=== PATIENT | male | born 1970 | race Caucasian/White ===

== ENCOUNTER 2022-09-19 13:23 | Outpatient (CLI) | payer OTHER, SELFPAY ==
--- NOTE | 2022-09-19 13:25 | XR_ITS ---
WS: [id number] LEFT HUMERUS: 2 VIEW(S) TECHNIQUE: AP and lateral. HISTORY: chronic pain in left arm COMPARISON: None available. No acute fracture or dislocation. Small soft tissue calcification adjacent to the deltoid insertion site. No foreign bodies and visualized upper thorax is unremarkable. XR/[place] [id number] IMPRESSION: Normal LEFT humerus.
== END 2022-09-19 13:24 | disposition home or self-care (01) ==
PROVIDERS: PCP Family Medicine; Visit Provider Family Medicine
DX: G89.29 Other chronic pain (principal); M79.602 Pain in left arm; R00.0 Tachycardia, unspecified
CPT/HCPCS: 73060; 80053; 80061; 82607; 83735; 84443; 85025